=== PATIENT | female | born 1955 | race African-American/Black ===

== ENCOUNTER 2022-04-14 18:27 | Emergency (ER) | payer BC, MEDICAID ==
[~2022-04-14] VITALS: Ht 160 cm; Wt 74.1 kg
--- NOTE | 2022-04-15 03:50 | NUR ---
I was drawing her blood and everything was fine until the needle went in and the needle wouldn't penetrate that vein in her RAC and she screamed "Pull it out, it doesn't look like you know what your doing" and she ripped her arm back and the needle obviously came out and than she wouldn't let me put the 2x2 on it. So I gave her the 2x2 and than she did let me put the bandaide on it but she told me "you look fucking high" When I told her that was unacceptable behavior she stood up and postured.
--- NOTE | 2022-04-15 03:54 | NUR ---
pt tried to elope. She was stopped and placed back into her room, security here but they are not allowed to do anything.
[2022-04-15] MEDS ORDERED: OLANZapine 5mg rapidly disint. tablet PO ONE (04:30)
[2022-04-15 05:25] LABS: BASOPHILS # (AUTO) 0.1 X10'3 (0-0.2); BASOPHILS % (AUTO) 0.7 % (0-1); EOSINOPHILS # (AUTO) 0.1 X10'3 (0-0.9); EOSINOPHILS % (AUTO) 0.9 % (0-6); HEMATOCRIT 39.5 % (35.0-45.0); LYMPHOCYTES # (AUTO) 2.8 X10'3 (1.1-4.8); LYMPHOCYTES % (AUTO) 18.4 % (21-51); MEAN CORPUSCULAR HEMOGLOBIN 28.7 PG (27.0-31.0); MEAN CORPUSCULAR HGB CONC 32.9 g/dL (33.0-36.5); MEAN CORPUSCULAR VOLUME 87.1 FL (78-98); MEAN PLATELET VOLUME 10.5 FL (7.4-10.4); PLATELET COUNT 290 X10'3 (140-440); RED BLOOD COUNT 4.53 X10'6 (4.20-5.60); RED CELL DISTRIBUTION WIDTH 15.2 % (11.5-14.5); WHITE BLOOD COUNT 15.1 X10'3 (4.5-11.0)
[2022-04-15 05:28] LABS: ALANINE AMINOTRANSFERASE 22 U/L (12-78); ALBUMIN 4.1 G/DL (3.4-5.0); ALBUMIN/GLOBULIN RATIO 1.2 (1.1-1.5); ALKALINE PHOSPHATASE 84 IU/L (46-116); ANION GAP 9 (8-16); ASPARTATE AMINO TRANSFERASE 10 U/L (10-37); BILIRUBIN,TOTAL 0.3 MG/DL (0.1-1.0); BLOOD UREA NITROGEN 10 MG/DL (7-18); BUN/CREATININE RATIO 10.2 (6.6-38.0); CALCIUM 9.9 MG/DL (8.5-10.1); CHLORIDE 104 MMOL/L (99-107); CREATININE 0.98 MG/DL (0.40-0.90); ETHANOL < 0.010 GM/DL (0.0-0.010); GLUCOSE 314 MG/DL (70-104); POTASSIUM 4.2 MMOL/L (3.5-5.1); SODIUM 138 MMOL/L (135-145); TOTAL CARBON DIOXIDE 25.2 MMOL/L (24-32); TOTAL PROTEIN 7.6 G/DL (6.4-8.2); eGFR 68 ML/MIN
[2022-04-15 05:56] LABS: URINE AMPHETAMINE SCREEN NEGATIVE (Neg); URINE BARBITUATE SCREEN NEGATIVE (Neg); URINE BENZODIAZEPINES SCREEN NEGATIVE (Neg); URINE CANNABINOID SCREEN NEGATIVE (Neg); URINE COCAINE SCREEN NEGATIVE (Neg); URINE METHADONE SCREEN NEGATIVE (Neg); URINE OPIATE SCREEN NEGATIVE (Neg); URINE PHENCYCLIDINE SCREEN NEGATIVE (Neg)
--- NOTE | 2022-04-15 08:07 | NUR ---
PACKET FAXED TO [facility]
--- NOTE | 2022-04-15 08:22 | NUR ---
Heart healthy, caution tray ordered for patient. Patient resting in room.
--- NOTE | 2022-04-15 18:25 | NUR ---
Patient endorsed to Olaf RENDON.
--- NOTE | 2022-04-15 19:48 | NUR ---
PT LAYING ON HER LEFT SIDE IN BED RESTING WITH HER EYES CLOSED
[2022-04-15] MEDS ORDERED: OLANZapine 2.5MG tablet PO STA (23:00)
[2022-04-15] MEDS ORDERED: olanzapine 10mg tablet PO STA (23:02)
--- NOTE | 2022-04-16 00:21 | NUR ---
PT LYING IN HER BED RESTING WITH HER EYES CLOSED WITHOUT ANY DISTRESS NOTED
--- NOTE | 2022-04-16 02:19 | NUR ---
Assumed care of patient. Patient lying comfortably in bed, no signs of distress, eyes closed.
--- NOTE | 2022-04-16 03:30 | NUR ---
Patient resting in bed, eyes closed. No signs of distress.
--- NOTE | 2022-04-16 04:30 | NUR ---
Patient asleep in bed. No signs of distress. No needs at this time.
--- NOTE | 2022-04-16 05:30 | NUR ---
Patient hiding in corner of ER near registration bathroom. Asked patient if she needed to use restroom, patient continued to just stare at nurse. Patient then denied needing to use restroom and assisted back to room.
--- NOTE | 2022-04-16 09:53 | NUR ---
Spoke w/ [facility] Advocate, Srinivasa, and he is working to connect pt w/ family and get him back to [place].
[2022-04-16] MEDS ORDERED: LANTUS SQ (16:09)
[2022-04-16] MEDS ORDERED: LITH300T5 PO (16:09)
[2022-04-16] MEDS ORDERED: INSU100V9 SQ (16:09)
[2022-04-16] MEDS ORDERED: SITA1TBM4 PO (16:10)
[2022-04-16] MEDS ORDERED: SIMV10TA98 PO (16:10)
[2022-04-16] MEDS ORDERED: BENA10TA75 PO (16:11)
[2022-04-16] MEDS ORDERED: FLUT16SP26 BOTHNARES (16:11)
[2022-04-16] MEDS ORDERED: BUSP10TA3 PO (16:11)
[2022-04-16] MEDS ORDERED: LORA10TA7 PO (16:12)
[2022-04-16] MEDS ORDERED: insulin regular, human 10 units/0.1 ml syringe SQ ONE ×2 (20:10→21:35)
[2022-04-16] MEDS ORDERED: fluticasone nasal spray 16GM bottle NS PRN (20:30)
[2022-04-16] MEDS ORDERED: loratadine 10mg tablet PO PRN (20:30)
[2022-04-16] MEDS ORDERED: dextrose 50%-water 50ml dispensing syringe IV PRN ×2 (20:45)
[2022-04-16] MEDS ORDERED: glucagon, human recombinant 1mg kit SUBCUT PRN (20:45)
[2022-04-16] MEDS ORDERED: MESSAGE TO PHARMACY PO ONE (20:45)
[2022-04-16] MEDS ORDERED: DEXTROSE 15 GM of carb/4 tabs (each vial/BOTTLE has 4 tablets) PO PRN ×2 (20:45)
[2022-04-16] MEDS: busPIRone 5mg tablet PO SCH (20:50)
[2022-04-16] MEDS ORDERED: insulin glargine (Lantus) pen - multi-dose SQ SCH (21:00)
[2022-04-16] MEDS ORDERED: Melatonin 3mg tablet PO SCH (23:38)
--- NOTE | 2022-04-17 00:15 | NUR ---
Patient awake, standing at doorway singing to staff.
[2022-04-17] MEDS ORDERED: LORazepam 2 mg/ml vial IM STA (01:19)
[2022-04-17 05:22] VITALS: BP_DIAS 57
--- NOTE | 2022-04-17 06:35 | NUR ---
Patient ambulatory from Main ED to ED OF bed 26. No distress observed. Continue to monitor.
[2022-04-17] MEDS ORDERED: metFORMIN 500mg tablet PO SCH (07:00)
[2022-04-17 07:57] VITALS: BP_SYST 127
[2022-04-17] MEDS: busPIRone 5mg tablet PO SCH ×2 (07:58→13:22)
[2022-04-17] MEDS ORDERED: atorvastatin 10mg tablet PO SCH (08:00)
[2022-04-17] MEDS ORDERED: insulin glargine (Lantus) pen - multi-dose SQ SCH (08:00)
[2022-04-17] MEDS ORDERED: lisinopril 10 MG tablet PO SCH (08:00)
[2022-04-17] MEDS ORDERED: lithium carbonate 150mg capsule PO SCH (08:00)
[2022-04-17] MEDS ORDERED: linagliptin 5mg tablet PO SCH (08:00)
--- NOTE | 2022-04-17 08:18 | NUR ---
Patient eating breakfast. No distress observed. Continue to monitor.
--- NOTE | 2022-04-17 10:03 | NUR ---
RN went to patient's room. Patient laying in bed and appears to be responding to internal stimuli AEB talking to her self non stop. Patient is pleasant. Continue to monitor.
--- NOTE | 2022-04-17 12:03 | NUR ---
Patient eating lunch. No distress observed. Continue to monitor.
== END 2022-04-17 13:40 ==
LOC: ER 18:28
DX: F20.9 Schizophrenia, unspecified (principal); Z20.822 Contact with and (suspected) exposure to COVID-19; F30.9 Manic episode, unspecified; F29 Unspecified psychosis not due to a substance or known physiological condition; I10 Essential (primary) hypertension; E11.9 Type 2 diabetes mellitus without complications; F17.200 Nicotine dependence, unspecified, uncomplicated; Z88.8 Allergy status to other drugs, medicaments and biological substances
CPT/HCPCS: 80053; 80305; 80320; 82948; 85025; 87811; 96372; 99285; J2060; 99284